=== PATIENT | male | born 1995 | race Caucasian/White ===

== ENCOUNTER 2016-11-16 12:44 | Emergency (ER) | payer BC ==
[2016-11-16 14:18] VITALS: BP 124/73
--- NOTE | 2016-11-16 14:46 | UC ---
Abdominal Pain Male HPI - HPI Summary HPI Summary: 21 yo male with a one week hx of LLQ abd pain and fullness no n/v/d no constipation n o change in bowel habits anorexia no f/c no CP or SOB has had mono - History of Current Complaint Chief Complaint: UCGeneralIllness Stated Complaint: SWELLING/TENDERNESS LLQ Time Seen by Provider: 11/16/16 14:30 Hx Obtained From: Patient Onset/Duration: Gradual Onset, Lasting Days - 7 Timing: Constant Severity Initially: Mild Severity Currently: Mild Pain Intensity: 1 - up to 6-7 at times Location: Discrete At: LUQ Character: Aching Aggravating Factor(s):: Nothing Alleviating Factor(s): Nothing Associated Signs And Symptoms: Positive: Decreased Appetite. Negative: Diaphoresis, Fever, Cough, Chest Pain, Dizzy, Back Pain, Constipation, Blood in Stool, Urinary Symptoms, Nausea, Vomiting, Diarrhea, Penile Discharge - Allergies/Home Medications Allergies/Adverse Reactions: Allergies Allergy/AdvReac Type Severity Reaction Status Date / Time No Known Allergies Allergy Verified 11/16/16 14:17 Home Medications: Home Medications NK [No Home Medications Reported] 11/16/16 [History Confirmed 11/16/16] PMH/Surg Hx/FS Hx/Imm Hx Previously Healthy: Yes - Surgical History Surgical History: None - Family History Known Family History: Positive: Hypertension - Social History Alcohol Use: Occasionally Substance Use Type: Marijuana Substance Use Comment - Amount & Last Used: few times a month Smoking Status (MU): Current Every Day Smoker Type: Smokeless Tobacco Amount Used/How Often: 1 can every other day Length of Time of Smoking/Using Tobacco: 2 yrs Have You Smoked in the Last Year: Yes Review of Systems Constitutional: Negative Skin: Negative Eyes: Negative ENT: Negative Respiratory: Negative Cardiovascular: Negative Gastrointestinal: Abdominal Pain Genitourinary: Negative Motor: Negative Neurovascular: Negative Musculoskeletal: Negative Neurological: Negative Psychological: Negative All Other Systems Reviewed And Are Negative: Yes Physical Exam Triage Information Reviewed: Yes Appearance: Well-Appearing, No Pain Distress, Well-Nourished Vital Signs: Initial Vital Signs Temp 98.6 F 11/16/16 14:08 Pulse 57 11/16/16 14:08 Resp 14 11/16/16 14:08 BP 124/73 11/16/16 14:08 Pulse Ox 100 11/16/16 14:08 Vital Signs Reviewed: Yes Eyes: Positive: Conjunctiva Clear ENT: Positive: Hearing grossly normal, Pharynx normal, TMs normal. Negative: Nasal congestion, Nasal drainage, Tonsillar swelling, Tonsillar exudate, Trismus , Muffled/hoarse voice Dental Exam: Normal Dental: Negative: Gross Decay/Caries @, Dental Fracture @, Abscess @ Neck: Positive: Supple, Nontender, No Lymphadenopathy Respiratory: Positive: Lungs clear, Normal breath sounds, No respiratory distress Cardiovascular: Positive: RRR, No Murmur. Negative: Tachycardia, Bradycardia Abdomen Description: Positive: Soft. Negative: Nontender - tender LUQ, CVA Tenderness (R), CVA Tenderness (L), Distended, Guarding, Hernia @, Hepatomegaly , McBurney's Point Tenderness, Peritoneal Signs, Pulsatile Mass Musculoskeletal: Positive: ROM Intact, No Edema Neurological: Positive: Alert Psychological Exam: Normal Skin Exam: Normal Abd Pain Male Course/Dx - Differential Dx/Clinical Impression Provider Diagnoses: viral syndrome. splenomegaly Discharge - Discharge Plan Condition: Stable Disposition: HOME Referrals: Non Staff,Doctor [Primary Care Provider] - Additional Instructions: your spleen is mildly enlarged blood work is pending I suspect a viral illness as the cause we will test and make sure you don't have mono again no sports for 2-3 weeks I suggest you get rechecked in 2 weeks you are welcome to recheck here if unable to see your MD
--- NOTE | 2016-11-16 15:03 | RAD ---
Indication: LEFT upper quadrant pain and swelling for one week. Previous mononucleosis. Comparison: None. Technique: LEFT upper quadrant ultrasound for assessment of the spleen. Report: 13.6 x 3.6 x 4.0 cm top mildly prominent spleen. Estimated splenic volume is 104 mL. No focal splenic lesions evident. Negative for perisplenic ascites. Negative for LEFT hydronephrosis. IMPRESSION: Mildly prominent spleen measuring up to 13.6 cm in length. Estimated splenic volume is 104 mL.
--- NOTE | 2016-11-16 15:36 | RAD ---
Indication: 1 week LEFT lower quadrant pain with both sharp and dull qualities. Comparison: Splenic ultrasound of the same date. Technique: Supine and upright abdomen views. Report: LEFT upper quadrant opacity correlates with mildly enlarged spleen noted on ultrasound. Unremarkable bowel gas pattern. No dilated bowel loops or significant air-fluid levels evident. Negative for free air. No suspicious calcifications. Unremarkable soft tissue contours. IMPRESSION: No pathologic process at the level of the LEFT lower quadrant evident. Mild splenomegaly.
[2016-11-16 20:05] LABS: EBV Response YES
[2016-11-16 20:21] LABS: Manual Entry Verification DOM0004; Mono Internal Control QC Line Present
[2016-11-16 20:24] LABS: Hematocrit 46 % (42-52); Hemoglobin 15.7 g/dl (14.0-18.0); Mean Corpuscular HGB Conc 34 g/dl (31-36); Mean Corpuscular Hemoglobin 30 pg (27-31); Mean Corpuscular Volume 89 fL (80-94); Mean Platelet Volume 10 um3 (7.4-10.4); Red Blood Count 5.19 10^6/ul (4.0-5.4); Red Cell Distribution Width 13 % (10.5-15); White Blood Count 8.7 10^3/ul (3.5-10.8)
[2016-11-16 20:36] LABS: Albumin 4.8 g/dL (3.2-5.2); BUN/Creatinine Ratio 12.2 (8-20); Calcium 10.1 mg/dL (8.6-10.3); EGFR African American 149.7 (>60); EGFR Non-African American 116.4 (>60); Globulin 2.9 g/dL (2-4); Potassium 4.3 mmol/L (3.5-5.0); Total Bilirubin 1.1 mg/dL (0.2-1.0); Total Protein 7.7 g/dL (6.4-8.9)
[2016-11-18 14:43] LABS: EBV Capsid Ag IgG Ab Positive (Negative); EBV Capsid Ag IgM Ab Negative (Negative)
== END 2016-11-16 16:06 | disposition home or self-care (01) ==
LOC: UCCORT 12:44
DX: B34.9 Viral infection, unspecified (principal); R16.1 Splenomegaly, not elsewhere classified; F17.210 Nicotine dependence, cigarettes, uncomplicated
CPT/HCPCS: 36415; 74020; 76705; 80053; 85025; 86308; 86664; 86665; 99201; G0463